=== PATIENT | male | born 1960 | race Caucasian/White ===

== ENCOUNTER 2022-07-29 10:35 | Inpatient (IN) | payer OTHER, SELFPAY ==
[2022-07-29 12:48] LABS: Hemoglobin 7.6 g/dL (14.0-18.0); Mean Corpuscular HGB CONC 30.8 g/dL (32.0-36.0); Mean Corpuscular Hemoglobin 28.2 pg (27.0-31.0); Mean Corpuscular Volume 91.6 fl (78.0-98.0); Mean Platelet Volume 7.2 fL (7.4-10.4); Platelet Count 528 10x3/uL (130-400); RBC Distribution Width 14.3 % (11.5-14.5); Red Blood Cell (RBC) Count 2.71 mill/uL (4.70-6.10); White Blood Cell (WBC) Count 22.7 10x3/uL (4.8-10.8)
[2022-07-29] MEDS ORDERED: Pantoprazole 40 MG VIAL ONE (12:52)
[2022-07-29] MEDS ORDERED: Cefepime 2 GM VIAL ONE (12:52)
[2022-07-29 13:05] LABS: Band 11 % (5-11); Lymphocytes 13 % (21-51); MDiff Complete? YES; Monocytes 3 % (0-10); Neutrophil 73 % (42-75); Platelet Morphology Comment Appears Increased; Polychromasia SLIGHT = 2-3 cells (100X) (0-2/hpf)
[2022-07-29 13:18] LABS: ALT (SGPT) 11 U/L (8-55); AST (SGOT) 13 U/L (5-34); Albumin 2.8 g/dL (3.4-4.8); Alkaline Phosphatase 84 U/L (40-110); Anion Gap 13 mmol/L (10-20); BUN (Urea Nitrogen) 44 mg/dL (8.4-25.7); Bilirubin, Total 0.4 mg/dL (0.2-1.2); Calc. Creatinine Clearance 0 mL/min (70-130); Calcium 11.6 mg/dL (7.8-10.44); Carbon Dioxide 34 mmol/L (23-31); Chloride 94 mmol/L (98-107); Estimated GFR 102; Globulin 2.8 g/dL (2.4-3.5); Glucose 101 mg/dL (80-115); Potassium 4.4 mmol/L (3.5-5.1); Protein, Total 5.6 g/dL (5.8-8.1); Sodium 137 mmol/L (136-145)
[2022-07-29 13:20] LABS: INR-International Normal Ratio 1.1; PTT 38.6 sec (22.9-36.1); Prothrombin Time 14.5 sec (12.0-14.7)
[2022-07-29 13:56] LABS: SARS-CoV-2 NAA Rapid Test Not Detected (NotDetected)
[2022-07-29] MEDS ORDERED: Ondansetron PF 4 MG/2 ML Vial IVP PRN (14:28)
[2022-07-29] MEDS ORDERED: Senokot S 8.6-50 MG TAB PO PRN (14:28)
[2022-07-29] MEDS ORDERED: Acetaminophen 325 MG TAB PO PRN (14:28)
[2022-07-29] MEDS ORDERED: Ipratropium/Albuterol 3 ML NEB NEB PRN (14:31)
[2022-07-29] MEDS ORDERED: VANCOMYCIN 1.25 GM/250 ML BAG 1.25 GM in Premix Bag 1 BAG IVPB SCH (15:00)
[2022-07-29] MEDS ORDERED: Piperacillin/Tazobactam 3.375 GM in Sodium Chloride 0.9% 100 ML IVPB SCH ×2 (15:00→20:00)
[2022-07-29] MEDS ORDERED: Vancomycin HCl 750 MG in Sodium Chloride 0.9% 250 ML 250 ML IVPB SCH (15:15)
[2022-07-29] MEDS ORDERED: Vancomycin HCl 500 MG in Sodium Chloride 0.9% 100 ML IVPB SCH (15:30)
[2022-07-29 15:57] LABS: Lactic Acid 2.2 mmol/L (0.5-2.2)
[2022-07-29] MEDS ORDERED: Piperacillin/Tazobactam 3.375 GM VIAL ONE (20:04)
[2022-07-29] MEDS: Ipratropium/Albuterol 3 ML NEB NEB SCH (20:18)
[2022-07-29] MEDS ORDERED: Ipratropium/Albuterol 3 ML NEB ONE (20:20)
[2022-07-29 21:52] VITALS: BMI 16.9
[2022-07-29] MEDS: NS 0.9% w/ 20 MEQ KCL 1,000 ML/1,000 ML BAG IV SCH (22:25)
[2022-07-29] MEDS: Piperacillin/Tazobactam 3.375 GM in Sodium Chloride 0.9% 100 ML IVPB SCH (22:54)
[2022-07-29] MEDS: Pantoprazole 40 MG VIAL IVP SCH (22:54)
[2022-07-29 23:17] LABS: #Eosinphils 0.3 thou/uL (0.0-0.7); #Lymphocytes 1.7 thou/uL (1.20-3.40); #Monocytes 1.1 thou/uL (0.11-0.59); #Neutrophils 12.2 thou/uL (1.40-6.50); %Basophils 0.2 % (0.0-1.0); %Eosinophils 1.7 % (0.0-10.0); %Monocytes 7.2 % (0.0-10.0); Hemoglobin 6.4 g/dL (14.0-18.0); Mean Corpuscular HGB CONC 30.1 g/dL (32.0-36.0); Mean Corpuscular Hemoglobin 27.8 pg (27.0-31.0); Mean Corpuscular Volume 92.5 fl (78.0-98.0); Mean Platelet Volume 6.9 fL (7.4-10.4); Platelet Count 394 10x3/uL (130-400); RBC Distribution Width 14.3 % (11.5-14.5); Red Blood Cell (RBC) Count 2.31 mill/uL (4.70-6.10); White Blood Cell (WBC) Count 15.2 10x3/uL (4.8-10.8)
[2022-07-30] MEDS: Ipratropium/Albuterol 3 ML NEB NEB SCH ×4 (01:01→18:34)
[2022-07-30] MEDS: Octreotide Acetate 1,250 MCG in Sodium Chloride 0.9% 250 ML 250 ML IVPB SCH (01:32)
[2022-07-30] MEDS: Piperacillin/Tazobactam 3.375 GM in Sodium Chloride 0.9% 100 ML IVPB SCH ×3 (04:40→20:36)
[2022-07-30] MEDS: Vancomycin 1 GM in Premix Bag 1 BAG IVPB SCH ×2 (06:11→18:18)
[2022-07-30] MEDS ORDERED: Lactated Ringer's 1,000 ML IV SCH (06:15)
[2022-07-30 08:34] LABS: #Eosinphils 0.4 thou/uL (0.0-0.7); #Lymphocytes 1.3 thou/uL (1.20-3.40); #Neutrophils 12.3 thou/uL (1.40-6.50); %Basophils 0.1 % (0.0-1.0); %Eosinophils 2.5 % (0.0-10.0); %Lymphocytes 8.6 % (21.0-51.0); %Monocytes 6.8 % (0.0-10.0); %Neutrophils 82.1 % (42.0-75.0); Hemoglobin 7.8 g/dL (14.0-18.0); Mean Corpuscular HGB CONC 31.6 g/dL (32.0-36.0); Mean Corpuscular Hemoglobin 28.5 pg (27.0-31.0); Mean Corpuscular Volume 90.3 fl (78.0-98.0); Mean Platelet Volume 7.2 fL (7.4-10.4); Platelet Count 362 10x3/uL (130-400); RBC Distribution Width 13.8 % (11.5-14.5); Red Blood Cell (RBC) Count 2.71 mill/uL (4.70-6.10)
[2022-07-30] MEDS: NS 0.9% w/ 20 MEQ KCL 1,000 ML/1,000 ML BAG IV SCH ×2 (08:54→20:36)
[2022-07-30 08:58] LABS: Anion Gap 10 mmol/L (10-20); BUN (Urea Nitrogen) 28 mg/dL (8.4-25.7); Calc. Creatinine Clearance 109 mL/min (70-130); Calcium 10.4 mg/dL (7.8-10.44); Carbon Dioxide 27 mmol/L (23-31); Chloride 106 mmol/L (98-107); Estimated GFR 107; Glucose 132 mg/dL (80-115); Potassium 3.5 mmol/L (3.5-5.1); Sodium 139 mmol/L (136-145)
[2022-07-30] MEDS: Pantoprazole 40 MG VIAL IVP SCH ×2 (09:33→20:36)
[2022-07-30] MEDS: HYDROcodone/Acetaminophen 5/325 mg Tablet PO PRN ×2 (09:54→14:41)
[2022-07-30] MEDS ORDERED: Morphine 2 MG/ML VIAL SLOW IVP PRN (16:07)
[2022-07-31] MEDS: Ipratropium/Albuterol 3 ML NEB NEB SCH ×5 (00:21→23:07)
[2022-07-31] MEDS: Octreotide Acetate 1,250 MCG in Sodium Chloride 0.9% 250 ML 250 ML IVPB SCH (02:12)
[2022-07-31] MEDS: NS 0.9% w/ 20 MEQ KCL 1,000 ML/1,000 ML BAG IV SCH ×2 (04:39→19:15)
[2022-07-31] MEDS: Piperacillin/Tazobactam 3.375 GM in Sodium Chloride 0.9% 100 ML IVPB SCH (04:39)
[2022-07-31 05:32] LABS: #Eosinphils 0.8 thou/uL (0.0-0.7); #Lymphocytes 1.6 thou/uL (1.20-3.40); #Monocytes 1.2 thou/uL (0.11-0.59); #Neutrophils 10.8 thou/uL (1.40-6.50); %Basophils 0.2 % (0.0-1.0); %Eosinophils 5.7 % (0.0-10.0); %Lymphocytes 10.8 % (21.0-51.0); %Monocytes 8.5 % (0.0-10.0); %Neutrophils 74.8 % (42.0-75.0); Hemoglobin 7.3 g/dL (14.0-18.0); Mean Corpuscular HGB CONC 30.8 g/dL (32.0-36.0); Mean Corpuscular Hemoglobin 28.2 pg (27.0-31.0); Mean Corpuscular Volume 91.3 fl (78.0-98.0); Mean Platelet Volume 7.3 fL (7.4-10.4); Platelet Count 398 10x3/uL (130-400); RBC Distribution Width 14.1 % (11.5-14.5); Red Blood Cell (RBC) Count 2.61 mill/uL (4.70-6.10); White Blood Cell (WBC) Count 14.4 10x3/uL (4.8-10.8)
[2022-07-31 05:41] LABS: INR-International Normal Ratio 1.1; Prothrombin Time 14.8 sec (12.0-14.7)
[2022-07-31 05:49] LABS: Vancomycin, Trough 9.5 ug/mL
[2022-07-31 05:50] LABS: Anion Gap 6 mmol/L (10-20); BUN (Urea Nitrogen) 21 mg/dL (8.4-25.7); Calc. Creatinine Clearance 111 mL/min (70-130); Calcium 10.3 mg/dL (7.8-10.44); Carbon Dioxide 29 mmol/L (23-31); Chloride 109 mmol/L (98-107); Estimated GFR 108; Glucose 124 mg/dL (80-115); Potassium 3.3 mmol/L (3.5-5.1); Sodium 141 mmol/L (136-145)
[2022-07-31] MEDS: Pantoprazole 40 MG VIAL IVP SCH (08:12)
[2022-07-31] MEDS ORDERED: HYDROcodone/Acetaminophen 5/325 mg Tablet PO PRN (09:05)
[2022-07-31] MEDS: Morphine 4 MG/ML VIAL SLOW IVP PRN ×3 (10:25→16:00)
[2022-07-31] MEDS: Lansoprazole 15 MG/5 ML (BATCHED)UDCUP PER TUBE SCH (10:28)
[2022-07-31] MEDS: Amoxicillin/Potassium Clav 875 MG TAB PO SCH (21:04)
[2022-08-01] MEDS: Ipratropium/Albuterol 3 ML NEB NEB SCH ×4 (06:38→22:51)
[2022-08-01] MEDS ORDERED: FLU VACC QS2022-23(6MOS UP)/PF 60 MCG/0.5 ML SYRINGE IM ONE (09:00)
[2022-08-01] MEDS: NS 0.9% w/ 20 MEQ KCL 1,000 ML/1,000 ML BAG IV SCH ×2 (09:15→22:18)
[2022-08-01] MEDS: Amoxicillin/Potassium Clav 875 MG TAB PO SCH ×2 (09:15→22:18)
[2022-08-01] MEDS: Lansoprazole 15 MG/5 ML (BATCHED)UDCUP PER TUBE SCH (09:15)
[2022-08-01] MEDS: Morphine 4 MG/ML VIAL SLOW IVP PRN ×4 (10:22→22:21)
[2022-08-02] MEDS: Ipratropium/Albuterol 3 ML NEB NEB SCH (07:35)
[2022-08-02] MEDS: Lansoprazole 15 MG/5 ML (BATCHED)UDCUP PER TUBE SCH (08:42)
[2022-08-02] MEDS: Amoxicillin/Potassium Clav 875 MG TAB PO SCH (08:43)
[2022-08-02] MEDS: Morphine 4 MG/ML VIAL SLOW IVP PRN (08:45)
[2022-08-02 08:59] VITALS: TEMP 97.9
== END 2022-08-02 10:26 | disposition hospice, home (50) | DRG 871 ==
LOC: ERS 10:35 → ERHOLD 14:27 → IMCU/EMU 21:16
PROVIDERS: ADMIT Internal Medicine; ATTEND Internal Medicine
PROC: 3E03329 Introduction of Other Anti-infective into Peripheral Vein, Percutaneous Approach (ICD-10-PCS; principal; 2022-07-29)
PROC: 30233N1 Transfusion of Nonautologous Red Blood Cells into Peripheral Vein, Percutaneous Approach (ICD-10-PCS; 2022-07-29)
DX: A41.9 Sepsis, unspecified organism (principal); R65.20 Severe sepsis without septic shock; Z66 Do not resuscitate; Z20.822 Contact with and (suspected) exposure to COVID-19; Z51.5 Encounter for palliative care; J18.9 Pneumonia, unspecified organism; J69.0 Pneumonitis due to inhalation of food and vomit; Z68.1 Body mass index [BMI] 19.9 or less, adult; J96.11 Chronic respiratory failure with hypoxia; C78.00 Secondary malignant neoplasm of unspecified lung; D62 Acute posthemorrhagic anemia; R62.7 Adult failure to thrive; J44.9 Chronic obstructive pulmonary disease, unspecified; F32.A Depression, unspecified; E78.00 Pure hypercholesterolemia, unspecified; C10.9 Malignant neoplasm of oropharynx, unspecified; Y95 Nosocomial condition; Z28.21 Immunization not carried out because of patient refusal; Z87.891 Personal history of nicotine dependence; Z80.9 Family history of malignant neoplasm, unspecified; Z93.0 Tracheostomy status; I25.2 Old myocardial infarction; Z79.899 Other long term (current) drug therapy
CPT/HCPCS: 36415; 36430; 71045; 80048; 80053; 80202; 83605; 85025; 85610; 85730; 86850; 86900; 86901; 87040; 87076; 87081; 94640; 96365; 96367; 96375; 97139; C9113; J0692; J1956; J2270; J2272; J2354; J2543; J3370; J3370-JW; J3480; J3490; J7050; J7120; J7620; P9016